=== PATIENT | female | born 1960 | race Hispanic/Latino ===

== ENCOUNTER → 2025-01-10 | Day surgery (SDC) | payer BC ==
[~2025-01-10] MED LIST: ACTOS15 MG PO; AMLODIPINE BESY10 MG PO; CALCIUM500 MG PO; CENTRUM ADULTS1 EACH PO; CRESTOR40 MG PO; GLIPIZIDE ER5 MG PO; HYGROTON25 MG PO; HYOSCYAMINE SULFATE 0.5 MG/ML INJ ONE; KETAMINE HCL INJ 50 MG/ML 10 ML VIAL ONE; LANTUS 3ML100 UNITS/ SC; LIDOCAINE HCL 2% LOCAL INJ 5 ML SDV VIAL INJ ONE; METFORMIN HCL500 M2 PO; MONTELUKAST SOD10 MG PO; PROPOFOL IV EMULSION 0 ML IV ONE; PROPOFOL IV EMULSION 10 MG/ML 20 ML VIAL ONE; PROPOFOL IV EMULSION 50 ML IV ONE; ZESTRIL10 MG PO
[2025-01-10 12:54] VITALS: TEMP 97.8
[2025-01-10 13:25] VITALS: BP 140/73; PULSE 77; RESP 16; O2SAT 96
[2025-01-10] MEDS: LACTATED RINGER'S 1,000 ML ONE (13:25)
== END | disposition home or self-care (01) ==
LOC: OR 09:31
PROVIDERS: ATTEND Internal Medicine Gastroenterology
DX: Z12.11 Encounter for screening for malignant neoplasm of colon (principal); D12.4 Benign neoplasm of descending colon; K64.8 Other hemorrhoids; E11.9 Type 2 diabetes mellitus without complications; I10 Essential (primary) hypertension; Z71.89 Other specified counseling; E78.5 Hyperlipidemia, unspecified; M54.2 Cervicalgia; M54.9 Dorsalgia, unspecified; J30.2 Other seasonal allergic rhinitis; Z01.810 Encounter for preprocedural cardiovascular examination; Z79.84 Long term (current) use of oral hypoglycemic drugs; Z79.4 Long term (current) use of insulin; Z79.899 Other long term (current) drug therapy; Z68.30 Body mass index [BMI] 30.0-30.9, adult; Z71.3 Dietary counseling and surveillance; Z85.3 Personal history of malignant neoplasm of breast
CPT/HCPCS: 36415; 45385; 82948; 93005; J1980; J2003; J2704 ×2; J7121; 45378